=== PATIENT | female | born 1990 | race Caucasian/White ===

== ENCOUNTER 2017-06-01 19:40 | Emergency (ER) | payer MEDICAID, OTHER ==
[2017-06-01 20:00] VITALS: BMI 41.9
--- NOTE | 2017-06-01 20:27 | ED PDOC ---
Arrival/HPI - General Chief Complaint: Flu-like Symptoms Time Seen by Provider: 06/01/17 19:44 Historian: Patient - History of Present Illness Narrative History of Present Illness (Text): 06/01/17 20:23 26 year old female with no significant medical history, presents to the emergency department complaining of flu like symptoms that began tonight. Patient took one Advil with no relief. Patient reports a fever, sore throat, body aches, runny nose, and ear aches, but denies any chills, chest pain, shortness of breath, nausea, vomiting, diarrhea, urinary symptoms, back pain, neck pain, headache, dizziness, or any other complaints. PMD: None Symptom Onset: Gradual Symptom Course: Unchanged Activities at Onset: Light Context: Home Past Medical History - Provider Review Nursing Documentation Reviewed: Yes - Infectious Disease Hx of Infectious Diseases: None - Tetanus Immunization Tetanus Immunization: Up to Date - Cardiac Hx Cardiac Disorders: No Hx Hypertension: No - Pulmonary Hx Respiratory Disorders: No - Neurological Hx Neurological Disorder: No - HEENT Hx HEENT Disorder: Yes (R ear and neck pain) Hx Cataracts: No Hx Deafness: Yes Hx Difficulty Chewing: Yes - Renal Hx Renal Disorder: No - Endocrine/Metabolic Hx Endocrine Disorders: No - Hematological/Oncological Hx Blood Disorders: No - Integumentary Hx Dermatological Disorder: No - Musculoskeletal/Rheumatological Hx Musculoskeletal Disorders: No Hx Back Pain: No Hx Degenerative Joint Disease: No Hx Falls: No Hx Fractures: No Hx Gout: No Hx Herniated Disk: No Hx Myasthenia Gravis: No Hx Osteoarthritis: No Hx Osteomyelitis: No Hx Osteoporosis: No Hx Rhabdomyolysis: No Hx Spinal Stenosis: No Hx Unsteady Gait: No - Gastrointestinal Hx Gastrointestinal Disorders: No Hx Colostomy: No Hx Crohn's Disease: No Hx Diverticulitis: No Hx Gall Bladder Disease: No Hx Gastroesophageal Reflux: No Hx Ileostomy: No Hx Liver Failure: No Hx Pancreatitis: No HX Swallowing Problems: No - Genitourinary/Gynecological Hx Genitourinary Disorders: No Hx Hematuria: No Hx Incontinence: No Hx Sexually Transmitted Diseases: No Hx Urinary Tract Infection: No - Psychiatric Hx Depression: No Hx Substance Use: No - Past Surgical History Past Surgical History: No Previous - Surgical History Hx Amputation: No Hx Appendectomy: No Hx Valve Replacement: No - Anesthesia Hx Anesthesia: No - Suicidal Assessment Feels Threatened In Home Enviroment: No Family/Social History - Physician Review Nursing Documentation Reviewed: Yes Family/Social History: No Known Family HX Smoking Status: Former Smoker Hx Alcohol Use: Yes Hx Substance Use: No Hx Substance Use Treatment: No Allergies/Home Meds Allergies/Adverse Reactions: Allergies aspirin Allergy (Verified 06/01/17 19:56) RASH latex Allergy (Verified 06/01/17 19:56) RASH Penicillins Allergy (Verified 06/01/17 19:56) RASH Home Medications: Home Meds Medication Instructions Recorded Confirmed Acetaminophen [Tylenol 325mg tab] 1,000 mg PO Q4 PRN 06/01/17 06/01/17 Ibuprofen [Motrin Tab] 400 mg PO Q6 PRN 06/01/17 06/01/17 Pheniramine/P-Eph/Acetaminophn 1 packet PO DAILY 06/01/17 06/01/17 [Theraflu Flu & Sore Throat] Review of Systems - Physician Review All systems were reviewed & negative as marked: Yes - Review of Systems Constitutional: Fevers. absent: Other (Chills) ENT: Sore Throat, Rhinorrhea, Other (Ear ache) Respiratory: absent: SOB Cardiovascular: absent: Chest Pain Gastrointestinal: absent: Diarrhea, Nausea, Vomiting Genitourinary Female: absent: Dysuria, Frequency, Hematuria Musculoskeletal: Other (body aches). absent: Back Pain, Neck Pain Neurological: absent: Headache, Dizziness Physical Exam Vital Signs Reviewed: Yes Vital Signs Temp Pulse Resp BP Pulse Ox 06/01/17 23:04 101 F H 92 H 18 100/56 L 95 06/01/17 22:15 101 F H 06/01/17 21:15 102.6 F H 06/01/17 21:06 102.6 F H 06/01/17 19:52 102.0 F H 106 H 16 109/73 100 Temperature: Febrile Blood Pressure: Normal Pulse: Tachycardic Respiratory Rate: Normal Appearance: Positive for: Well-Appearing, Non-Toxic, Comfortable Pain Distress: None Mental Status: Positive for: Alert and Oriented X 3 - Systems Exam Head: Present: Atraumatic, Normocephalic Pupils: Present: PERRL Extroacular Muscles: Present: EOMI Conjunctiva: Present: Normal Ears: Present: NORMAL TM (TM Intact ) Mouth: Present: Moist Mucous Membranes Pharnyx: Present: ERYTHEMA (posterior pharynx), Other ((+)Uvular Midline ) Nose (Internal): Present: Rhinorrhea Neck: Present: Normal Range of Motion. No: Meningeal Signs Respiratory/Chest: Present: Clear to Auscultation, Good Air Exchange. No: Respiratory Distress, Accessory Muscle Use Cardiovascular: Present: Regular Rate and Rhythm, Normal S1, S2. No: Murmurs Abdomen: Present: Normal Bowel Sounds. No: Tenderness, Distention, Peritoneal Signs Back: Present: Normal Inspection Upper Extremity: Present: Normal Inspection. No: Cyanosis, Edema Lower Extremity: Present: Normal Inspection. No: Edema Neurological: Present: GCS=15, CN II-XII Intact, Speech Normal, Motor Func Grossly Intact, Normal Sensory Function Skin: Present: Warm, Dry, Normal Color. No: Rashes Lymphatic: No: Cervical Adenopathy Psychiatric: Present: Alert, Oriented x 3, Normal Insight, Normal Concentration Medical Decision Making ED Course and Treatment: 06/01/17 20:23 Impression: 26 year old female presents complaining of flu like symptoms. Patient is complaining of fever, sore throat, body aches, rhinorrhea and ear aches. Plan: -- Influenza A B -- Reassess and disposition Prior Visits: Notes and results from previous visits were reviewed. On 04/17/16, patient presented for a test. Patient was discharged. Progress Notes: - Lab Interpretations Lab Results: 06/01/17 22:00 06/01/17 22:00 Lab Results 06/01/17 22:00: WBC 5.8 D, RBC 4.93, Hgb 14.8, Hct 43.4, MCV 88.0, MCH 30.0, MCHC 34.1, RDW 13.9, Plt Count 177, MPV 10.4 06/01/17 22:00: Sodium 140, Potassium 3.8, Chloride 105, Carbon Dioxide 24, Anion Gap 15, BUN 8, Creatinine 0.7, Est GFR ( Amer) > 60, Est GFR (Non- Af Amer) > 60, Random Glucose 100, Calcium 8.9, Total Bilirubin 0.5, AST 60 H, ALT 87 H, Alkaline Phosphatase 129 H, Total Protein 7.3, Albumin 4.4, Globulin 3.0, Albumin/Globulin Ratio 1.5 06/01/17 22:00: Urine Color Yellow, Urine Appearance Clear, Urine pH 6.0, Ur Specific Justice 1.015, Urine Protein Negative, Urine Glucose (UA) Negative, Urine Ketones Negative, Urine Blood Small H, Urine Nitrate Negative, Urine Bilirubin Negative, Urine Urobilinogen 0.2, Ur Leukocyte Esterase Small H, Urine RBC 15 - 20, Urine WBC 5 - 10, Ur Epithelial Cells 6 - 8, Urine HCG, Qual Negative 06/01/17 20:09: Influenza Typ A,B (EIA) Negative for flu a/b - Medication Orders Current Medication Orders: Discontinued Medications Acetaminophen (Tylenol 325mg Tab) 975 mg PO STAT STA Stop: 06/01/17 21:10 Last Admin: 06/01/17 21:15 Dose: 975 mg MAR Pain/Vitals Document 06/01/17 21:15 GMD (Rec: 06/01/17 21:15 GMD [facility] [id number]) Pain Reassessment Is This A Pain ReAssessment? No Sleep Is patient sleeping during reassessment? No Presence of Pain Presence of Pain Yes Location Pain Location Body Quality Internship Vitals Temperature (97.6 F-99.6 F) 102.6 F Temperature Source Oral Re-Assess: [facility] Pain/Vitals Document 06/01/17 22:15 GMD (Rec: 06/01/17 23:13 GMD [facility] [id number]) Vitals Temperature (97.6 F-99.6 F) 101 F Temperature Source Oral Azithromycin (Zithromax) 500 mg PO ONCE STA PRN Reason: Protocol Stop: 06/01/17 23:13 Benzocaine/Menthol (Cepacol Sore Throat) 1 michi MT ONCE ONE Stop: 06/01/17 22:19 Last Admin: 06/01/17 23:04 Dose: 1 michi Sodium Chloride (Sodium Chloride 0.9%) 1,000 mls @ 999 mls/hr IV .Q1H1M STA Stop: 06/01/17 22:55 Last Admin: 06/01/17 22:19 Dose: 999 mls/hr eMAR Start Stop Document 06/01/17 22:19 GMD (Rec: 06/01/17 22:19 GMD [facility] [id number]) Intravenous Solution Start Date 06/01/17 Start Time 22:19 End Date 10/21/17 End time 23:20 Total Infusion Time 61 - Scribe Statement The provider has reviewed the documentation as recorded by the Scribe Kirsty Lacey All medical record entries made by the Scribe were at my direction and personally dictated by me. I have reviewed the chart and agree that the record accurately reflects my personal performance of the history, physical exam, medical decision making, and the department course for this patient. I have also personally directed, reviewed, and agree with the discharge instructions and disposition. Disposition/Present on Arrival - Present on Arrival Any Indicators Present on Arrival: No History of DVT/PE: No History of Uncontrolled Diabetes: No Urinary Catheter: No History of Decub. Ulcer: No History Surgical Site Infection Following: None - Disposition Have Diagnosis and Disposition been Completed?: Yes Diagnosis: Pharyngitis Disposition: HOME/ ROUTINE Disposition Time: 23:16 Patient Plan: Discharge Patient Problems: Current Active Problems Problem Status Onset Pharyngitis Acute Condition: GOOD Discharge Instructions (ExitCare): Pharyngitis (ED) Additional Instructions: Drink plenty of cool liquids/take meds as prescribed/tylenol as directed/follow up with your doctor this week Prescriptions: Azithromycin [Zithromax] 250 mg PO DAILY #6 tab Referrals: PCP,NO [Primary Care Provider] - Follow up with primary Forms: [employer] ([employer])
[2017-06-01] MEDS ORDERED: Sodium Chloride 0.9% 1,000 ML IV STA (21:55)
[2017-06-01] MEDS ORDERED: Benzocaine/Menthol (Cepacol) Lozenge MT ONE (22:18)
[2017-06-01 22:19] LABS: URINE APPEARANCE CLEAR (CLEAR); URINE BILIRUBIN NEGATIVE (NEGATIVE); URINE BLOOD SMALL (NEGATIVE); URINE COLOR YELLOW (YELLOW); URINE GLUCOSE (UA) NEGATIVE (NEGATIVE); URINE KETONE NEGATIVE (NEGATIVE); URINE LEUKOCYTE ESTERASE SMALL Leu/uL (NEGATIVE); URINE PROTEIN NEGATIVE mg/dL (<30 mg/dL); URINE UROBILINOGEN 0.2 E.U./dL (<1 E.U./dL)
[2017-06-01 22:20] LABS: HEMATOCRIT 43.4 % (36.0-48.0); MEAN CORPUSCULAR HGB CONC 34.1 g/dl (31.0-37.0); MEAN PLATELET VOLUME 10.4 fl (7.0-11.0); RED CELL DISTRIBUTION WIDTH 13.9 % (11.5-14.5); WHITE BLOOD COUNT 5.8 10^3/ul (4.5-11.0)
[2017-06-01 22:22] LABS: URINE RBC 15 - 20 /hpf (0-2)
[2017-06-01 22:27] LABS: ALB/GLOB RATIO 1.5 (1.1-1.8); ALKALINE PHOSPHATASE 129 U/L (38-126); ALT/SGPT 87 U/L (7-56); AST/SGOT 60 U/L (14-36); BILIRUBIN,TOTAL 0.5 mg/dL (0.2-1.3); BLOOD UREA NITROGEN 8 mg/dL (7-21); CALCIUM 8.9 mg/dL (8.4-10.5); CARBON DIOXIDE 24 mmol/L (21-33); CHLORIDE 105 mmol/L (98-107); GFR AFRICAN-AMERICAN > 60; GLUCOSE,RANDOM 100 mg/dL (70-110); POTASSIUM 3.8 mmol/L (3.6-5.0); SODIUM 140 mmol/L (132-148); TOTAL PROTEIN 7.3 g/dL (5.8-8.3)
[2017-06-01 23:04] VITALS: TEMP 101
[2017-06-01 23:08] VITALS: BP 100/56; PULSE 92; RESP 18; O2SAT 95
== END 2017-06-01 23:27 | disposition home or self-care (01) ==
LOC: ED 19:40
DX: J02.9 Acute pharyngitis, unspecified (principal); Z87.891 Personal history of nicotine dependence
CPT/HCPCS: 80053; 81001; 84703; 85027; 87086; 87804; 96360; 99284; J7040

== ENCOUNTER 2017-10-04 17:10 | Emergency (ER) | payer MEDICAID, OTHER ==
[2017-10-04 17:41] VITALS: BMI 28.3
[2017-10-04 17:45] VITALS: RESP 18; TEMP 98.2; O2SAT 98
--- NOTE | 2017-10-04 18:34 | ED PDOC ---
Arrival/HPI - General Chief Complaint: Dental Pain Time Seen by Provider: 10/04/17 18:18 Historian: Patient - History of Present Illness Narrative History of Present Illness (Text): 10/04/17 18:30 27 year old female, with no significant past medical history, presents to the Emergency department complaining of worsening right sided jaw and neck discomfort for past 2 days. Patient informs symptoms have been present for 2 years, yet nothing was reported after visiting ENT specialist. Patient states she was at the [facility] satellite Emergency department this morning, where she was given oxycodon and tylenol with no relief to symptoms. Patient denies any fever, chills, nausea, vomiting, diarrhea, abdominal pain, chest pain, shortness of breath or any other complaints. Patient informs her last menstrual cycle was on September 18. Time/Duration: 24 hours Symptom Onset: Gradual Symptom Course: Worsening Quality: Aching Activities at Onset: Light Context: Home Past Medical History - Provider Review Nursing Documentation Reviewed: Yes - Infectious Disease Hx of Infectious Diseases: None - Tetanus Immunization Tetanus Immunization: Up to Date - Cardiac Hx Cardiac Arrhythmia: No Hx Congestive Heart Failure: No Hx Hypertension: No Hx Mitral Valve Prolapse: No Hx Pacemaker: No - Pulmonary Hx Asthma: No Hx Bronchitis: No Hx Chronic Obstructive Pulmonary Disease (COPD): No Hx Emphysema: No Hx Pneumonia: No Hx Sleep Apnea: No - Neurological Hx Alzheimer's Disease: No Hx Dementia: No Hx Migraine: No Hx Parkinson's Disease: No Hx Seizures: No Hx Transient Ischemic Attacks (TIA): No - HEENT Hx HEENT Disorder: Yes (R ear and neck pain) Hx Cataracts: No Hx Deafness: Yes Hx Difficulty Chewing: Yes - Renal Hx Renal Disorder: No Hx Kidney Stones: No - Endocrine/Metabolic Hx Hyperthyroidism: No Hx Hypothyroidism: No - Hematological/Oncological Hx Anemia: No Hx Sickle Cell Disease: No - Integumentary Hx Dermatological Disorder: No - Musculoskeletal/Rheumatological Hx Arthritis: No Hx Fractures: No Hx Osteoporosis: No - Gastrointestinal Hx Crohn's Disease: No Hx Diverticulitis: No Hx Gall Bladder Disease: No Hx Gastrointestinal Ulcer: No Hx Pancreatitis: No - Genitourinary/Gynecological Hx Sexually Transmitted Diseases: No - Psychiatric Hx Anxiety: No Hx Bipolar Disorder: No Hx Depression: No Hx Post Traumatic Stress Disorder: No Hx Schizophrenia: No Hx Substance Use: No - Past Surgical History Past Surgical History: No Previous - Surgical History Hx Appendectomy: No Hx Cholecystectomy: No Hx Coronary Stent: No - Anesthesia Hx Anesthesia: No - Suicidal Assessment Feels Threatened In Home Enviroment: No Family/Social History - Physician Review Nursing Documentation Reviewed: Yes Family/Social History: No Known Family HX Smoking Status: Current Some Days Smoker Hx Alcohol Use: Yes Frequency of alcohol use: Socially Hx Substance Use: No Hx Substance Use Treatment: No Allergies/Home Meds Allergies/Adverse Reactions: Allergies aspirin Allergy (Verified 06/01/17 19:56) RASH latex Allergy (Verified 06/01/17 19:56) RASH Penicillins Allergy (Verified 06/01/17 19:56) RASH Home Medications: Home Meds Medication Instructions Recorded Confirmed Ibuprofen [Motrin Tab] 400 mg PO Q6 PRN 06/01/17 10/04/17 Cyclobenzaprine [Flexeril] 1 tab PO DAILY 10/04/17 10/04/17 Review of Systems - Physician Review All systems were reviewed & negative as marked: Yes - Review of Systems Constitutional: Normal. absent: Fevers Eyes: Normal ENT: Normal Respiratory: Normal. absent: SOB Cardiovascular: Normal. absent: Chest Pain Gastrointestinal: Normal. absent: Abdominal Pain, Diarrhea, Nausea, Vomiting Genitourinary Female: Normal Musculoskeletal: Other (right jaw and neck discomfort) Skin: Normal Neurological: Normal Endocrine: Normal Hemo/Lymphatic: Normal Psychiatric: Normal Physical Exam Vital Signs Reviewed: Yes Vital Signs Temp Pulse Resp BP Pulse Ox 10/04/17 20:16 76 18 111/56 L 98 10/04/17 17:45 98.2 F 75 18 107/68 98 Temperature: Afebrile Blood Pressure: Normal Pulse: Regular Respiratory Rate: Normal Appearance: Positive for: Uncomfortable Pain Distress: Moderate Mental Status: Positive for: Alert and Oriented X 3 - Systems Exam Head: Present: Atraumatic, Normocephalic, Other (exquisite pain of right TMJ and also right mastoid fullness. Possible adenopathy.) Pupils: Present: PERRL Extroacular Muscles: Present: EOMI Conjunctiva: Present: Normal Ears: Present: Normal, NORMAL TM. No: TM Perf Mouth: Present: Moist Mucous Membranes, Other (No intraoral lesion or swellling. ) Neck: Present: Other (Right upper neck decrease cervical range of motion.) Respiratory/Chest: Present: Clear to Auscultation, Good Air Exchange. No: Respiratory Distress, Accessory Muscle Use Cardiovascular: Present: Regular Rate and Rhythm, Normal S1, S2. No: Murmurs Abdomen: Present: Normal Bowel Sounds. No: Tenderness, Distention, Peritoneal Signs Back: Present: Normal Inspection Upper Extremity: Present: Normal Inspection. No: Cyanosis, Edema Lower Extremity: Present: Normal Inspection. No: Edema Neurological: Present: GCS=15, CN II-XII Intact, Speech Normal Skin: Present: Warm, Dry, Normal Color. No: Rashes Psychiatric: Present: Alert, Oriented x 3, Normal Insight, Normal Concentration Medical Decision Making ED Course and Treatment: 10/04/17 18:36 Impression: 27 year old female presents to the Emergency department complaining of right sided jaw and neck discomfort. Plan: -- CT of Head -- CT of Neck -- Urinalysis -- Reassess and disposition Progress Notes: 10/04/17 19:54 CT of neck reviewed by radiologist, shows tonsillitis. Lymphoid hyperplasia noted at the tongue base. 10/04/17 19:54 CT of head reviewed by radiologist, shows possible left aneurysm at the ICA or MCA level versus volume averaging artifact. CTA or MRA recommended if patient MRI compatible. - RAD Interpretation Radiology Orders: 10/04/17 18:29 HEAD W/O CONTRAST [CT] Stat NECK SOFT TISSUE W/O CONTRAST [CT] Stat - Medication Orders Current Medication Orders: Discontinued Medications Acetaminophen (Tylenol 325mg Tab) 975 mg PO STAT STA Stop: 10/04/17 20:22 Clindamycin HCl (Cleocin) 300 mg PO STAT STA PRN Reason: Protocol Stop: 10/04/17 20:22 - Scribe Statement The provider has reviewed the documentation as recorded by the Scribe Sushma Miranda. All medical record entries made by the Scribe were at my direction and personally dictated by me. I have reviewed the chart and agree that the record accurately reflects my personal performance of the history, physical exam, medical decision making, and the department course for this patient. I have also personally directed, reviewed, and agree with the discharge instructions and disposition. Disposition/Present on Arrival - Present on Arrival Any Indicators Present on Arrival: No History of DVT/PE: No History of Uncontrolled Diabetes: No Urinary Catheter: No History of Decub. Ulcer: No History Surgical Site Infection Following: None - Disposition Have Diagnosis and Disposition been Completed?: Yes Diagnosis: Pharyngitis, Lymphadenitis Disposition: HOME/ ROUTINE Disposition Time: 20:20 Patient Plan: Discharge Condition: STABLE Prescriptions: Clindamycin [Clindamycin HCl] 300 mg PO TID #42 cap Referrals: Mark Lucas [Primary Care Provider] - Follow up with primary Forms: [employer] ([employer])
[2017-10-04 20:17] VITALS: BP 111/56; PULSE 76
--- NOTE | 2017-10-05 08:04 | CT ---
PROCEDURE: CT HEAD WITHOUT CONTRAST. HISTORY: right headache COMPARISON: None available. TECHNIQUE: Axial computed tomography images were obtained through the head/brain without intravenous contrast. Radiation dose: Total exam DLP = 895.90 mGy-cm. This CT exam was performed using one or more of the following dose reduction techniques: Automated exposure control, adjustment of the mA and/or kV according to patient size, and/or use of iterative reconstruction technique. FINDINGS: HEMORRHAGE: No intracranial hemorrhage. BRAIN: Lopez-white matter differentiation is preserved. There is no mass, mass effect or abnormal extra-axial fluid collection VENTRICLES: The ventricles are normal in size, shape and configuration. CALVARIUM: The skull base and calvarium are normal. PARANASAL SINUSES: Predominantly clear. MASTOID AIR CELLS: Predominantly clear. OTHER FINDINGS: There is a 3 mm hyperdensity in the region of the left suprasellar cistern (series 2, image 11). IMPRESSION: 3 mm high density focus in the region of the left suprasellar cistern is indeterminate and could represent is saccular aneurysm or small hemorrhage. Follow-up imaging with CTA/ MRA of the head is recommended for definitive evaluation. A preliminary report was provided by [facility].
--- NOTE | 2017-10-05 08:08 | CT ---
PROCEDURE: CT NECK WITHOUT CONTRAST HISTORY: right pain and swelling COMPARISON: None. TECHNIQUE: CT of the neck without intravenous contrast. Coronal and sagittal reformats generated. Radiation dose: DLP 433.47 mGy-cm This CT exam was performed using one or more of the following dose reduction techniques: Automated exposure control, adjustment of the mA and/or kV according to patient size, and/or use of iterative reconstruction technique. FINDINGS: NASOPHARYNX: Within normal limits. SUPRAHYOID NECK: There is bilateral tonsillar enlargement, worse on the left. There is no bulky mass in the oropharynx, oral cavity, parapharyngeal space and retropharyngeal space. INFRAHYOID NECK: The no bulky mass in the larynx, hypopharynx, and supraglottic space. Vocal cords intact. GLANDS: Parotid and submandibular glands are normal in size. Normal size thyroid gland, without nodule. LYMPH NODES: Normal. No lymphadenopathy. CERVICAL SPINE: No fracture or focal lesion. OTHER FINDINGS: The lung apices are clear. There is an azygous lobe fissure. IMPRESSION: Examination is limited in the absence of intravenous contrast. Allowing for this, mild bilateral tonsillar enlargement, larger on left. No evidence for bulky mass, airway obstruction or lymphadenopathy. A preliminary report was provided by [facility].
== END 2017-10-04 20:50 | disposition home or self-care (01) ==
LOC: ED 17:10
DX: J02.9 Acute pharyngitis, unspecified (principal); I88.9 Nonspecific lymphadenitis, unspecified; F17.210 Nicotine dependence, cigarettes, uncomplicated

== ENCOUNTER 2017-10-09 17:28 | Emergency (ER) | payer OTHER ==
[2017-10-09 17:29] VITALS: BMI 28.3
[2017-10-09 17:41] VITALS: TEMP 98.2
--- NOTE | 2017-10-09 17:58 | ED PDOC ---
Arrival/HPI - General Chief Complaint: ENT Problem Time Seen by Provider: 10/09/17 17:43 Historian: Patient - History of Present Illness Narrative History of Present Illness (Text): 10/09/17 17:46 27 year old female, pmh including tonsillitis which she is on the cleocin/brain aneurysm?/chronic headache/retropharyngeal abscess, allergic to aspirin only ( not any other nsaids) and penicillin, complaining of posterior headache and throat pain x 2 weeks with no fall or trauma. Aching pain, aggravated by swallowing, throat pain associated with posterior headache, no pain medication taken at home, no night sweat, seen in the ER about 5 days ago and given cleocin which she stated that the pain has not completely resolved, no palpitation, no chest pain, no other medical or psychological complaints. Past Medical History - Provider Review Nursing Documentation Reviewed: Yes - Infectious Disease Hx of Infectious Diseases: None - Tetanus Immunization Tetanus Immunization: Up to Date - Cardiac Hx Cardiac Arrhythmia: No Hx Congestive Heart Failure: No Hx Hypertension: No Hx Mitral Valve Prolapse: No Hx Pacemaker: No - Pulmonary Hx Asthma: No Hx Bronchitis: No Hx Chronic Obstructive Pulmonary Disease (COPD): No Hx Emphysema: No Hx Pneumonia: No Hx Sleep Apnea: No - Neurological Hx Alzheimer's Disease: No Hx Dementia: No Hx Migraine: No Hx Parkinson's Disease: No Hx Seizures: No Hx Transient Ischemic Attacks (TIA): No - HEENT Hx HEENT Disorder: Yes (R ear and neck pain) Hx Cataracts: No Hx Deafness: Yes Hx Difficulty Chewing: Yes - Renal Hx Renal Disorder: No Hx Kidney Stones: No - Endocrine/Metabolic Hx Hyperthyroidism: No Hx Hypothyroidism: No - Hematological/Oncological Hx Anemia: No Hx Sickle Cell Disease: No - Integumentary Hx Dermatological Disorder: No - Musculoskeletal/Rheumatological Hx Arthritis: No Hx Fractures: No Hx Osteoporosis: No - Gastrointestinal Hx Crohn's Disease: No Hx Diverticulitis: No Hx Gall Bladder Disease: No Hx Gastrointestinal Ulcer: No Hx Pancreatitis: No - Genitourinary/Gynecological Hx Sexually Transmitted Diseases: No - Psychiatric Hx Anxiety: No Hx Bipolar Disorder: No Hx Depression: No Hx Post Traumatic Stress Disorder: No Hx Schizophrenia: No Hx Substance Use: No - Past Surgical History Past Surgical History: No Previous - Surgical History Hx Appendectomy: No Hx Cholecystectomy: No Hx Coronary Stent: No Other/Comment: abcess drained - Anesthesia Hx Anesthesia: Yes Hx Anesthesia Reactions: Yes (numbness) - Suicidal Assessment Feels Threatened In Home Enviroment: No Family/Social History - Physician Review Nursing Documentation Reviewed: Yes Family/Social History: Unknown Family HX Smoking Status: Current Some Days Smoker Hx Alcohol Use: Yes Hx Substance Use: No Hx Substance Use Treatment: No Allergies/Home Meds Allergies/Adverse Reactions: Allergies aspirin Allergy (Verified 10/09/17 17:36) RASH latex Allergy (Verified 10/09/17 17:36) RASH Penicillins Allergy (Verified 10/09/17 17:36) RASH Review of Systems - Review of Systems Constitutional: absent: Fatigue, Fevers Eyes: absent: Vision Changes ENT: Sore Throat. absent: Hearing Changes Respiratory: absent: SOB, Cough Cardiovascular: absent: Chest Pain Gastrointestinal: absent: Abdominal Pain, Nausea, Vomiting Musculoskeletal: absent: Arthralgias, Back Pain Skin: absent: Rash, Pruritis Neurological: Headache. absent: Dizziness, Focal Weakness, Gait Changes, Speech Changes Psychiatric: absent: Anxiety, Depression, Suicidal Ideation Physical Exam Vital Signs Reviewed: Yes Vital Signs Temp Pulse Resp BP Pulse Ox 10/09/17 19:29 70 17 110/78 99 10/09/17 17:37 98.2 F 76 18 104/73 100 Temperature: Afebrile Blood Pressure: Normal Pulse: Regular Respiratory Rate: Normal Appearance: Positive for: Well-Appearing, Non-Toxic Pain Distress: Moderate Mental Status: Positive for: Alert and Oriented X 3 - Systems Exam Head: Present: Atraumatic, Normocephalic Pupils: Present: PERRL Extroacular Muscles: Present: EOMI Conjunctiva: Present: Normal Ears: Present: NORMAL TM, Normal Canal. No: Erythema Mouth: Present: Moist Mucous Membranes Pharnyx: Present: TONSILS ENLARGED (mild left tonsillitis). No: ERYTHEMA, EXUDATE, Peritonsilar Swelling, Uvular Deviation Nose (External): Present: Atraumatic. No: Abrasion, Contusion Nose (Internal): Present: Normal Inspection, No Active Bleeding. No: Rhinorrhea , Septal Hematoma, Epistaxis Neck: Present: Normal Range of Motion, Trachea Midline. No: Meningeal Signs, MIDLINE TENDERNESS, Paraspinal Tenderness, Lymphadenopathy Respiratory/Chest: Present: Clear to Auscultation, Good Air Exchange. No: Respiratory Distress, Accessory Muscle Use, Wheezes, Decreased Breath Sounds, Rales, Retracting, Rhonchi, Tachypneic Cardiovascular: Present: Regular Rate and Rhythm, Normal S1, S2. No: Murmurs Abdomen: Present: Normal Bowel Sounds. No: Tenderness, Distention, Peritoneal Signs, Rebound, Guarding Back: Present: Normal Inspection Upper Extremity: Present: Normal Inspection. No: Cyanosis, Edema Lower Extremity: Present: Normal Inspection. No: Edema Neurological: Present: GCS=15, CN II-XII Intact, Speech Normal, Motor Func Grossly Intact, Gait Normal, Memory Normal Skin: Present: Warm, Dry, Normal Color. No: Rashes Lymphatic: No: Axillary Adenopathy Psychiatric: Present: Alert, Oriented x 3, Normal Insight, Normal Concentration Medical Decision Making ED Course and Treatment: 10/09/17 18:05 -labs/rapid strept -CT head r/o bleed -CT soft tissue neck r/o retropharyngeal abscess -IV reglan/decadron/tylenol po/toradol -electronic device monitor -Observe and reassess 10/09/17 20:35 -Urine hcg is negative -Rapid strep is negative -CT head show No acute findings seen within the brain. -CT soft tissue neck - Mild swelling of the left palatine tonsils, which could be due to mild tonsillitis. No peritonsillar abscess is seen. -Labs show no acute findings, no elevation of wbc. -Pt. feels much better, eating and drinking well, neck and throat pain resolved. -Pt. stated that she lost her cleocin and has motrin 600mg po at home only, will give another 5 days of cleocin with ENT and neurologist follow up. Pt. stated that she has completed 5 days of cleocin. -Discharge home with cleocin, continue your motrin at home as you have it, follow up with your own ENT and pmd within 2 days, follow up with your neurologist Dr. Branch as your have the referral, return to the ER for any new or worsening signs or symptoms. - Lab Interpretations Lab Results: 10/09/17 18:20 10/09/17 18:20 Lab Results 10/09/17 18:20: WBC 7.9 D, RBC 4.69, Hgb 14.8, Hct 43.9, MCV 93.6 D, MCH 31.6 , MCHC 33.7, RDW 12.6, Plt Count 262, MPV 10.5, Gran % 53.1, Lymph % (Auto) 36.5 H, [place] % (Auto) 5.9, Eos % (Auto) 3.7, Baso % (Auto) 0.8, Gran # 4.21, Lymph # (Auto) 2.9, [place] # (Auto) 0.5, Eos # (Auto) 0.3, Baso # (Auto) 0.06 10/09/17 18:20: Sodium 144, Potassium 4.6, Chloride 105, Carbon Dioxide 27, Anion Gap 17, BUN 16, Creatinine 0.7, Est GFR ( Amer) > 60, Est GFR (Non- Af Amer) > 60, Random Glucose 93, Calcium 10.0, Total Bilirubin 0.3, AST 21, ALT 37, Alkaline Phosphatase 108, Total Protein 7.4, Albumin 4.5, Globulin 2.9, Albumin/Globulin Ratio 1.5 10/09/17 17:15: Grp A Beta Strep Ag Negative - RAD Interpretation Radiology Orders: 10/09/17 17:59 HEAD W/O CONTRAST [CT] Stat NECK SOFT TISSUE W/CONTRAST [CT] Stat -CT head LIMITATIONS: Mild streak/motion artifact. BRAIN: Small area of CSF density at the base of the brain on the left, most likely representing a prominent perivascular space, a normal variant. No significant acute abnormality identified. No acute hemorrhage seen within the brain. No acute extra-axial fluid collections visualized. No evidence of significant mass effect within the brain. Normal hopper-white matter differentiation. VENTRICLES: No evidence of significant hydrocephalus. BONES/JOINTS: No acute fractures or other acute bony abnormality noted. SOFT TISSUES: No acute abnormality of the visualized soft tissues is seen. SINUSES: Visualized paranasal sinuses appear clear. MASTOID AIR CELLS: Mastoid air cells appear clear. IMPRESSION: - No acute findings seen within the brain. Thank you for allowing us to participate in the care of your patient. Dictated and Authenticated by: Tana Pal MD 10/09/2017 8:10 PM Eastern Time ([place] & [place]) ------- -CT soft tissue neck FINDINGS: NASOPHARYNX: No acute abnormality of the adenoidal/nasopharyngeal tonsils identified. OROPHARYNX: Best seen on image 39 of series 2, there is mild swelling of the left palatine tonsil inferiorly, which could be due to mild tonsillitis. No evidence of peritonsillar abscess. No acute abnormality of the tongue base identified. HYPOPHARYNX: No acute abnormality of the pyriform sinuses visualized. LARYNX: No acute abnormality of the epiglottis identified. No acute abnormality of the vocal cords identified. TRACHEA: Visualized portions of the trachea appear patent. RETROPHARYNGEAL SPACE: No evidence of prevertebral/retropharyngeal fluid or fluid collection. SUBMANDIBULAR/PAROTID GLANDS: No acute abnormality of the submandibular or parotid glands identified. THYROID: No acute abnormality of the thyroid glands identified. BONES/JOINTS: No acute fractures or other acute bony abnormality noted. SOFT TISSUES: No findings to suggest significant cellulitis of the soft tissues. No evidence of focal soft tissue fluid collection/abscess. VASCULATURE: No acute abnormality of the major neck vessels seen. LYMPH NODES:No evidence of diffuse lymphadenopathy. ESOPHAGUS: No acute abnormality of the upper esophagus identified. LUNG APICES: Azygos fissure incidentally noted in the right upper lobe, a normal variant. IMPRESSION: - Mild swelling of the left palatine tonsils, which could be due to mild tonsillitis. No peritonsillar abscess is seen. - Otherwise, no evidence of significant acute process. - See above for remaining findings. Thank you for allowing us to participate in the care of your patient. Dictated and Authenticated by: Tana Pal MD 10/09/2017 8:25 PM Eastern Time ([place] & [place]) Mining Support Worker: Radiologist - Medication Orders Current Medication Orders: Discontinued Medications Acetaminophen (Tylenol 325mg Tab) 650 mg PO STAT STA Stop: 10/09/17 18:01 Last Admin: 10/09/17 18:59 Dose: 650 mg MAR Pain/Vitals Document 10/09/17 18:59 SF (Rec: 10/09/17 19:00 [email or web address] Pain Reassessment Is This A Pain ReAssessment? Yes Sleep Is patient sleeping during reassessment? No Presence of Pain Presence of Pain Yes Pain Scale Used Pain Scale Used Numeric Location Pain Location Body Site Jaw Dexamethasone (Decadron Inj) 8 mg IVP STAT STA Stop: 10/09/17 18:01 Last Admin: 10/09/17 19:00 Dose: 8 mg IVP Administration Document 10/09/17 19:00 SF (Rec: 10/09/17 19:00 [email or web address]) Charges for Administration # of IVP Administrations 1 Ketorolac Tromethamine (Toradol) 30 mg IVP STAT STA Stop: 10/09/17 18:09 Last Admin: 10/09/17 19:00 Dose: 30 mg MAR Pain Assessment Document 10/09/17 19:00 SF (Rec: 10/09/17 19:00 [email or web address] Pain Reassessment Is this a pain reassessment? Yes Sleep Is patient sleeping during reassessment? No Presence of Pain Presence of Pain Yes Pain Scale Used Pain Scale Used Numeric Location Left, Right or Bilateral Bilateral Pain Location Body Site Jaw IVP Administration Document 10/09/17 19:00 SF (Rec: 10/09/17 19:00 [email or web address]) Charges for Administration # of IVP Administrations 1 Metoclopramide HCl (Reglan) 10 mg IVP STAT STA Stop: 10/09/17 18:00 Last Admin: 10/09/17 19:00 Dose: 10 mg IVP Administration Document 10/09/17 19:00 SF (Rec: 10/09/17 19:00 [email or web address] Charges for Administration # of IVP Administrations 1 - PA / CUSTOMS MANAGER / Resident Statement MD/DO has reviewed & agrees with the documentation as recorded. Disposition/Present on Arrival - Present on Arrival Any Indicators Present on Arrival: No History of DVT/PE: No History of Uncontrolled Diabetes: No Urinary Catheter: No History of Decub. Ulcer: No History Surgical Site Infection Following: None - Disposition Have Diagnosis and Disposition been Completed?: Yes Diagnosis: Tonsillitis Disposition: HOME/ ROUTINE Disposition Time: 18:06 Patient Plan: Discharge Condition: IMPROVED Additional Instructions: -Discharge home with cleocin, continue your motrin at home as you have it, follow up with your own ENT and pmd within 2 days, follow up with your neurologist Dr. Branch as your have the referral, return to the ER for any new or worsening signs or symptoms. Prescriptions: Clindamycin [Cleocin] 300 mg PO QID #20 cap Referrals: Mark Lucas [Primary Care Provider] - Follow up with primary Andrea Flanagan DO [[facility]] - Follow up with primary Forms: WORK NOTE
[2017-10-09 18:47] LABS: BASO # 0.06 K/mm3 (0.0-2.0); BASO % 0.8 % (0.0-3.0); EOS # 0.3 (0.0-0.7); EOS % 3.7 % (1.5-5.0); GRAN # 4.21 (1.4-6.5); GRAN % 53.1 % (50.0-68.0); HEMOGLOBIN 14.8 g/dL (12.0-16.0); LYMPH # 2.9 (1.2-3.4); LYMPH % 36.5 % (22.0-35.0); MEAN CELL VOLUME 93.6 fl (80.0-105.0); MEAN CORPUSCULAR HEMOGLOBIN 31.6 pg (25.0-35.0); MEAN CORPUSCULAR HGB CONC 33.7 g/dl (31.0-37.0); MEAN PLATELET VOLUME 10.5 fl (7.0-11.0); MONO # 0.5 (0.1-0.6); MONO % 5.9 % (1.0-6.0); RBC 4.69 10^6/uL (3.5-6.1); RED CELL DISTRIBUTION WIDTH 12.6 % (11.5-14.5); WHITE BLOOD COUNT 7.9 10^3/ul (4.5-11.0)
[2017-10-09 18:50] LABS: ALB/GLOB RATIO 1.5 (1.1-1.8); ALBUMIN 4.5 g/dL (3.0-4.8); ALT/SGPT 37 U/L (7-56); AST/SGOT 21 U/L (14-36); BLOOD UREA NITROGEN 16 mg/dL (7-21); GFR AFRICAN-AMERICAN > 60; GFR NON-AFRICAN AMERICAN > 60
[2017-10-09] MEDS ORDERED: Iohexol 350 MG/100 ML VIAL ONE (19:05)
[2017-10-09 19:56] VITALS: BP 110/78; PULSE 70; RESP 17; O2SAT 99
--- NOTE | 2017-10-09 20:11 | CT ---
EXAM: CT Head Without Intravenous Contrast EXAM DATE/TIME: 10/09/2017 5:59 PM CLINICAL HISTORY: 27 years old, female; Pain; Headache; Headache not specified; Additional info: Chronic headache x 2 weeks TECHNIQUE: Axial computed tomography images of the head/brain without intravenous contrast. All CT scans at this facility use one or more dose reduction techniques, viz.: automated exposure control; ma/kV adjustment per patient size (including targeted exams where dose is matched to indication; i.e. head); or iterative reconstruction technique. Coronal and sagittal reformatted images were created and reviewed. COMPARISON: Prior head CT of 2017-10-04 FINDINGS: LIMITATIONS: Mild streak/motion artifact. BRAIN: Small area of CSF density at the base of the brain on the left, most likely representing a prominent perivascular space, a normal variant. No significant acute abnormality identified. No acute hemorrhage seen within the brain. No acute extra-axial fluid collections visualized. No evidence of significant mass effect within the brain. Normal hopper-white matter differentiation. VENTRICLES: No evidence of significant hydrocephalus. BONES/JOINTS: No acute fractures or other acute bony abnormality noted. SOFT TISSUES: No acute abnormality of the visualized soft tissues is seen. SINUSES: Visualized paranasal sinuses appear clear. MASTOID AIR CELLS: Mastoid air cells appear clear. IMPRESSION: - No acute findings seen within the brain. - See above for remaining findings.
--- NOTE | 2017-10-09 20:26 | CT ---
EXAM: CT Neck With Intravenous Contrast EXAM DATE/TIME: 10/09/2017 5:59 PM CLINICAL HISTORY: 27 years old, female; Signs and symptoms; Dysphagia / difficulty swallowing and other: Throat and neck pain; Additional info: Posterior throat pain x 2 weeks. TECHNIQUE: Axial computed tomography images of the neck with intravenous contrast. All CT scans at this facility use one or more dose reduction techniques, viz.: automated exposure control; ma/kV adjustment per patient size (including targeted exams where dose is matched to indication; i.e. head); or iterative reconstruction technique. Coronal and sagittal reformatted images were created and reviewed. CONTRAST: 94 mL of omnipaque 350 administered intravenously. COMPARISON: Prior neck CT of 2017-10-04 FINDINGS: NASOPHARYNX: No acute abnormality of the adenoidal/nasopharyngeal tonsils identified. OROPHARYNX: Best seen on image 39 of series 2, there is mild swelling of the left palatine tonsil inferiorly, which could be due to mild tonsillitis. No evidence of peritonsillar abscess. No acute abnormality of the tongue base identified. HYPOPHARYNX: No acute abnormality of the pyriform sinuses visualized. LARYNX: No acute abnormality of the epiglottis identified. No acute abnormality of the vocal cords identified. TRACHEA: Visualized portions of the trachea appear patent. RETROPHARYNGEAL SPACE: No evidence of prevertebral/retropharyngeal fluid or fluid collection. SUBMANDIBULAR/PAROTID GLANDS: No acute abnormality of the submandibular or parotid glands identified. THYROID: No acute abnormality of the thyroid glands identified. BONES/JOINTS: No acute fractures or other acute bony abnormality noted. SOFT TISSUES: No findings to suggest significant cellulitis of the soft tissues. No evidence of focal soft tissue fluid collection/abscess. VASCULATURE: No acute abnormality of the major neck vessels seen. LYMPH NODES:No evidence of diffuse lymphadenopathy. ESOPHAGUS: No acute abnormality of the upper esophagus identified. LUNG APICES: Azygos fissure incidentally noted in the right upper lobe, a normal variant. IMPRESSION: - Mild swelling of the left palatine tonsils, which could be due to mild tonsillitis. No peritonsillar abscess is seen. - Otherwise, no evidence of significant acute process. - See above for remaining findings.
== END 2017-10-09 22:43 | disposition home or self-care (01) ==
LOC: ED 17:28
DX: J03.90 Acute tonsillitis, unspecified (principal); F17.210 Nicotine dependence, cigarettes, uncomplicated
CPT/HCPCS: 70450; 70491; 80053; 85025; 87070; 87430; 96365; 96375; 99284; J1100; J1885; J2765; Q9967

== ENCOUNTER 2018-08-06 15:36 | Emergency (ER) | payer OTHER ==
[2018-08-06 15:41] VITALS: BMI 27.9
[2018-08-06 15:50] VITALS: RESP 17; TEMP 98.4
--- NOTE | 2018-08-06 17:06 | ED PDOC ---
Arrival/HPI - General Chief Complaint: Upper Extremity Problem/Injury Time Seen by Provider: 08/06/18 15:41 Historian: Patient - History of Present Illness Narrative History of Present Illness (Text): 08/06/18 17:02 A 28 year old female, whose past medical history includes tonsillitis, chronic headache, retropharyngeal abscess, allergic to aspirin only (not any other nsaids) and penicillin, presents to the emergency department with a complaint of headache, left arm/ breast pain, abdominal pain, nausea, vomiting, and generalized malaise. Patient notes that she has a biopsy of a mass in her left breast on 07/21. Since they she has been experiencing pain and it radiates towards her left shoulder. The patient reports that this morning she developed a headache, abdominal pain with nausea and vomiting. The patient reports that she has been taking Flexeril, but no pain medication for her symptoms. She states that he last normal menstrual period was at the beginning of the month. The patient denies fevers, chills, dizziness, chest pain, shortness of breath, dyspnea on exertion, cough, diarrhea, back pain, neck pain, urinary/bowel changes, or any other complaint. Time/Duration: Other (2 weeks) Symptom Onset: Sudden Symptom Course: Unchanged Activities at Onset: Rest, Light Context: Home Past Medical History - Provider Review Nursing Documentation Reviewed: Yes - Infectious Disease Hx of Infectious Diseases: None - Tetanus Immunization Tetanus Immunization: Up to Date - Cardiac Hx Cardiac Disorders: No - Pulmonary Hx Respiratory Disorders: No - Neurological Hx Neurological Disorder: No - HEENT Hx HEENT Disorder: Yes (R ear and neck pain) Hx Deafness: Yes Hx Difficulty Chewing: Yes - Renal Hx Renal Disorder: No - Endocrine/Metabolic Hx Endocrine Disorders: No - Hematological/Oncological Hx Blood Disorders: No - Integumentary Hx Dermatological Disorder: No - Musculoskeletal/Rheumatological Hx Musculoskeletal Disorders: No - Gastrointestinal Hx Gastrointestinal Disorders: No - Genitourinary/Gynecological Hx Genitourinary Disorders: No - Psychiatric Hx Psychophysiologic Disorder: No Hx Substance Use: No - Past Surgical History Past Surgical History: No Previous - Surgical History Other/Comment: abcess drained - Anesthesia Hx Anesthesia: Yes Hx Anesthesia Reactions: Yes (numbness) - Suicidal Assessment Feels Threatened In Home Enviroment: No Family/Social History - Physician Review Nursing Documentation Reviewed: Yes Family/Social History: No Known Family HX Smoking Status: Former Smoker Hx Alcohol Use: Yes Frequency of alcohol use: Socially Hx Substance Use: No Hx Substance Use Treatment: No Allergies/Home Meds Allergies/Adverse Reactions: Allergies aspirin Allergy (Verified 08/06/18 15:40) RASH latex Allergy (Verified 08/06/18 15:40) RASH Penicillins Allergy (Verified 08/06/18 15:40) RASH Review of Systems - Physician Review All systems were reviewed & negative as marked: Yes - Review of Systems Constitutional: absent: Fevers Respiratory: absent: SOB, Cough Cardiovascular: absent: Chest Pain, TROTTER Gastrointestinal: Abdominal Pain, Nausea, Vomiting. absent: Stool Changes, Diarrhea Genitourinary Female: absent: Urine Output Changes Musculoskeletal: Other (left breast and left arm pain.). absent: Back Pain, Neck Pain Neurological: Headache. absent: Dizziness Physical Exam Vital Signs Reviewed: Yes Vital Signs Temp Pulse Resp BP Pulse Ox 08/06/18 16:07 116/72 08/06/18 15:41 98.4 F 97 H 17 98 Temperature: Afebrile Blood Pressure: Normal Pulse: Regular Respiratory Rate: Normal Appearance: Positive for: Well-Appearing, Non-Toxic, Comfortable Pain Distress: None Mental Status: Positive for: Alert and Oriented X 3 - Systems Exam Head: Present: Atraumatic, Normocephalic Pupils: Present: PERRL Extroacular Muscles: Present: EOMI Conjunctiva: Present: Normal Mouth: Present: Moist Mucous Membranes Neck: Present: Normal Range of Motion Respiratory/Chest: Present: Clear to Auscultation, Good Air Exchange. No: Respiratory Distress, Accessory Muscle Use Cardiovascular: Present: Regular Rate and Rhythm, Normal S1, S2. No: Murmurs Abdomen: Present: Tenderness. No: Distention, Peritoneal Signs Breast/Axillary: Present: Masses (Well circumscribed mass palpable near upper outer quadrant of the left breast.), Tender to Palpation (Tenderness to left breast. Ecchymosis noted near the left areola. ). No: Nipple Discharge Back: Present: Normal Inspection Upper Extremity: Present: Tenderness (Tenderness to palpation of the left shoulder.). No: Cyanosis, Edema Lower Extremity: Present: Normal Inspection. No: Edema Neurological: Present: GCS=15, CN II-XII Intact, Speech Normal Skin: Present: Warm, Dry, Other (Spots of hypopigmentation noted around the lips, hands, knees, eyes.). No: Rashes Psychiatric: Present: Alert, Oriented x 3, Normal Insight, Normal Concentration Medical Decision Making ED Course and Treatment: 08/06/18 17:06 Impression: A 28 year old female presents to the emergency department with a complaint of headache, abdominal pain, nausea, vomiting, and left breast pain radiating to the left shoulder. Differential Diagnosis included but are not limited to: --Musculoskeletal Pain Plan: --Labs --Toradol --Valium --CXR --Reassess and disposition Prior Visits: Notes and results from previous visits were reviewed. Progress Notes: 08/06/18 18:47 Labs 08/06/18 19:04 On re-evaluation, patient feels better and is in no acute distress. I have discussed the results and plan with the patient, who expresses understanding. Patient in agreement with plan to be discharged home. Patient is stable for discharge. Patient was instructed to follow up with physician or return if symptoms worsen or new concerning symptoms arise. - Lab Interpretations I have reviewed the lab results: Yes - RAD Interpretation Narrative RAD Interpretations (Text): Chest X-ray Signed By: Mirna Marshall MD Date Signed:08/06/181736 IMPRESSION: No focal consolidation identified. - EKG Interpretation Interpreted by ED Physician: Yes Type: 12 lead EKG - Scribe Statement The provider has reviewed the documentation as recorded by the Scribe Kayleen Bingham Provider Scribe Attestation: All medical record entries made by the Scribe were at my direction and personally dictated by me. I have reviewed the chart and agree that the record accurately reflects my personal performance of the history, physical exam, medical decision making, and the department course for this patient. I have also personally directed, reviewed, and agree with the discharge instructions and disposition. Disposition/Present on Arrival - Present on Arrival Any Indicators Present on Arrival: No History of DVT/PE: No History of Uncontrolled Diabetes: No Urinary Catheter: No History of Decub. Ulcer: No History Surgical Site Infection Following: None - Disposition Have Diagnosis and Disposition been Completed?: Yes Diagnosis: Breast pain Disposition: HOME/ ROUTINE Disposition Time: 18:54 Patient Plan: Discharge Patient Problems: Current Active Problems Problem Status Onset Breast pain Acute Condition: STABLE Discharge Instructions (ExitCare): Mastalgia (DC), Chest Pain (ED) Print Language: MACEDONIAN Additional Instructions: All medical record entries made by the Scribe were at my direction and personally dictated by me. I have reviewed the chart and agree that the record accurately reflects my personal performance of the history, physical exam, medical decision making, and the department course for this patient. I have also personally directed, reviewed, and agree with the discharge instructions and disposition. Please follow up with your surgeon in 1-2 days Please continue warm compresses as well as Motrin every 6 hours with food for your pain Prescriptions: Ibuprofen [Motrin Tab] 600 mg PO Q6H PRN 6 Days #24 tab PRN Reason: Pain, Moderate (4-7) Referrals: Camelia Mcdermott MD [Medical Doctor] - Follow up with primary [facility] [Outside] - Follow up with primary Forms: [employer] (Ukrainian)
[2018-08-06] MEDS ORDERED: Sodium Chloride 0.9% 1,000 ML IV STA (17:08)
[2018-08-06 17:19] LABS: PH,URINE 5.5 (4.7-8.0); URINE BILIRUBIN NEGATIVE (NEGATIVE); URINE BLOOD MODERATE (NEGATIVE); URINE GLUCOSE (UA) NEGATIVE (NEGATIVE); URINE LEUKOCYTE ESTERASE NEGATIVE Leu/uL (NEGATIVE); URINE PROTEIN NEGATIVE mg/dL (<30 mg/dL); URINE UROBILINOGEN 0.2 E.U./dL (<1 E.U./dL)
[2018-08-06 17:21] LABS: URINE APPEARANCE SL CLOUDY (CLEAR); URINE COLOR YELLOW (YELLOW)
[2018-08-06 17:29] LABS: URINE BACTERIA FEW /hpf
--- NOTE | 2018-08-06 17:41 | RAD ---
HISTORY: chest pain COMPARISON: Chest x-ray performed 08/16/14 TECHNIQUE: Chest, one view. FINDINGS: LUNGS: Azygos lobe, anatomic variant. No focal consolidation. Please note that chest x-ray has limited sensitivity for the detection of pulmonary masses. PLEURA: No significant pleural effusion identified. No definite pneumothorax . CARDIOVASCULAR: Heart size appears within normal limits. No significant atherosclerotic calcification present. OSSEOUS STRUCTURES: No acute osseous abnormality identified. VISUALIZED UPPER ABDOMEN: Unremarkable. OTHER FINDINGS: None. IMPRESSION: No focal consolidation identified.
[2018-08-06 18:41] LABS: BASO # 0.01 K/mm3 (0.0-2.0); BASO % 0.1 % (0.0-3.0); EOS # 0.2 (0.0-0.7); EOS % 1.7 % (1.5-5.0); GRAN # 10.01 (1.4-6.5); GRAN % 86.5 % (50.0-68.0); LYMPH # 0.9 (1.2-3.4); LYMPH % 7.6 % (22.0-35.0); MEAN CORPUSCULAR HEMOGLOBIN 30.1 pg (25.0-35.0); MEAN CORPUSCULAR HGB CONC 33.4 g/dl (31.0-37.0); MEAN PLATELET VOLUME 10.3 fl (7.0-11.0); MONO # 0.5 (0.1-0.6); MONO % 4.1 % (1.0-6.0); RBC 4.99 10^6/uL (3.5-6.1); RED CELL DISTRIBUTION WIDTH 13.2 % (11.5-14.5); WHITE BLOOD COUNT 11.6 10^3/uL (4.5-11.0)
[2018-08-06 18:42] LABS: ALB/GLOB RATIO 1.4 (1.1-1.8); ALBUMIN 4.7 g/dL (3.0-4.8); ALT/SGPT 29 U/L (7-56); AST/SGOT 27 U/L (14-36); BLOOD UREA NITROGEN 16 mg/dL (7-21); CALCIUM 9.1 mg/dL (8.4-10.5); GFR NON-AFRICAN AMERICAN > 60
[2018-08-06 23:49] VITALS: BP 120/60; PULSE 90; O2SAT 100
== END 2018-08-06 19:30 | disposition home or self-care (01) ==
LOC: ED 15:36
DX: N64.4 Mastodynia (principal); Z87.891 Personal history of nicotine dependence
CPT/HCPCS: 71045; 80053; 81001; 85025; 96374; 99284; J1885; J7030

== ENCOUNTER 2018-08-25 18:40 | Outpatient (CLI) | payer OTHER | END 2018-08-25 18:41 | disposition home or self-care (01) | LOC: RAD 18:40 ==